=== PATIENT | male | born 1980 | race Asian ===

== ENCOUNTER 2017-04-24 12:42 | Emergency (ER) | payer OTHER ==
--- NOTE | 2017-04-24 12:48 | ED.REPORT ---
HPI-General Illness Date of Service Apr 24, 2017 ED Provider: Bart Bedoya DO The patient is a 36 year old male who was brought to the emergency department by his brother for bizarre behavior. The patient was scheduled to go to [facility] for detox treatment. His brother believes the patient used meth about 2 hours ago and may have used more than he normally does. The patient is not able to provide any history at this time. His brother believes he has history of schizophrenia. He was recently hospitalized at [facility] in [place] after he swallowed several razor blades. Nursing Notes Stated Complaint: HIGH ON METH Nursing Notes Reviewed: Yes Allergies: Coded Allergies: No Known Allergies (Unverified , 04/24/17) General Time Seen by MD: 12:46 Chief Complaint Altered mental status Hx Obtained From: Other family... Unable to Obtain Hx: Patient condition, Intoxicated Arrived By: Walk-in Sudden in Onset?: Yes Onset Occurred: 46 - 59 minutes ago Context of Onset: Amphetamine use Symptom Duration: Since onset Recent Healthcare: Recent hospitalization Past Medical History Past Medical History Notes: Not able to get a full past medical history due to the patient's current mental status Past Medical History Substance abuse Family History Noncontributory Smoking History Unknown if Ever Smoker Social History Drug Use: Meth Other Social History: Good social support Ambulatory Status Independent Review of Systems Unable to Obtain ROS Patient condition Physical Exam Vital Signs Vital Signs Date Time Temp Pulse Resp B/P Pulse Ox O2 Delivery O2 Flow Rate FiO2 04/24/17 13:15 124 21 141/99 95 Room Air 04/24/17 12:55 37.1 138 28 110/68 96 Room Air Initial VS: Reviewed, Vital signs abnormal Head / Eyes: Atraumatic, Normocephalic, PERRL ENT: Mucous membranes moist, Conjunctiva normal, No scleral icterus Neck: Supple, Non-tender, Full range of motion Respiratory: Breath sounds normal, Clear to auscultation, No respiratory distress Abdomen / GI: Soft Extremities: No swelling, No tenderness General/Constitutional: Awake, Cooperative Cardiovascular: Regular rhythm, Heart sounds NL, No murmurs, No rubs Heart Rate / Rhythm: Positive: Tachycardia Skin: Color NL Color / Condition: Positive: Diaphoresis present NEURO: Psychomotor agitation. PSY: Psychomotor agitation. Speaking gibberish. Unable to complete a full mental health evaluation due to status. Interpretation & Diagnostics Lab Results Interpretation Result Diagram: 04/24/17 1310 04/24/17 1310 Test 04/24/17 13:10 White Blood Count 21.8th/mm3 (3.8-10.1) Red Blood Count 5.99mil/mm3 (4.40-5.80) Hemoglobin 14.9g/dL (13.8-17.2) Hematocrit 43.6% (41.0-50.0) Mean Corpuscular Volume 72.8fL (81-100) Mean Corpuscular Hemoglobin 24.9pg (27.0-35.0) Mean Corpuscular Hemoglobin Concent 34.2% (32.0-37.0) Red Cell Distribution Width 14.7% (12.3-15.4) Platelet Count 375bil/L (150-400) Neutrophils (%) (Auto) 80.7% (40-74) Lymphocytes (%) (Auto) 13.2% (14-46) Monocytes (%) (Auto) 5.3% (4-12) Eosinophils (%) (Auto) 0.1% (0-5) Basophils (%) (Auto) 0.4% (0-3) Sodium Level 147mEq/L (134-144) Potassium Level 3.7mEq/L (3.5-5.2) Chloride Level 99mEq/L (97-108) Carbon Dioxide Level 28mmol/L (18-29) Blood Urea Nitrogen 24mg/dL (6-20) Creatinine 1.68mg/dL (0.76-1.27) Estimat Glomerular Filtration Rate 50mL/min (>59) Glucose Level 159mg/dL (60-99) Calcium Level 11.2mg/dL (8.5-10.1) Total Bilirubin 0.7mg/dL (0.0-1.2) Aspartate Amino Transf (AST/SGOT) 43U/L (0-50) Alanine Aminotransferase (ALT/SGPT) 36U/L (0-44) Alkaline Phosphatase 85U/L (25-150) Total Creatine Kinase 586U/L (21-232) Total Protein 8.9g/dL (6.4-8.4) Albumin 5.0g/dL (3.4-5.0) Thyroid Stimulating Hormone (TSH) 1.490uIU/mL (0.450-4.500) Hold [place] Top Tube Received (Received) Alcohols < 10mg/dL (0-10) ECG Interpretation ECG Interpretation: Sinus tachycardia with a rate of 118 Probable LVH No acute ischemic changes Time: 13:32 Interpreted by: ED physician X-Ray Abdominal Interpretation IMPRESSION: No opaque foreign bodies identified. Distended stomach. Dictated by: Lilian Paige M.D. 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 Required multiple doses of parenteral lorazepam. Needs continued monitoring for metabolism of probable methamphetamine. Patient care transferred to Dr. Dela Cruz Source of Hx: Family Consultation : Consulted With: herbarium worker Call Returned at: 14:00 Note: ED social media manager is aware of the patient. Counseled Regarding: Diagnosis, Lab results Discharge & Departure Shift Change Sign-Out Response to Therapy: Improved Primary Impression: Psychomotor agitation Additional Impression: Substance abuse Discharge Condition All VS Reviewed: Yes Condition: Stable Care Transferred to: Dr. Dela Cruz Care Transferred at: 15:01 Crit Care Except Billable Proc Time Spent: 30-74 minutes Services Performed: Patient management by me, Time spent at bedside, Reviewing test results Critical Care Notes: See Armando ALVARADO Attestation Portions of this note were transcribed by Jaclyn Peck. I, Dr. Bedoya personally performed the history, physical exam and medical decision-making; I reviewed and confirmed the accuracy of the information in the transcribed note. Signed by: Armando Robertson, 04/24/2017 at 1510. Bart Bedoya DO Apr 24, 2017 12:47 Jaclyn Peck Apr 24, 2017 12:51
[2017-04-24] MEDS ORDERED: 0.9% Sodium Chloride 1,000 ML IV SCH (12:50)
[2017-04-24 12:55] VITALS: BP 110/68; PULSE 138; RESP 28; O2SAT 96
[2017-04-24 13:15] VITALS: BP 141/99; PULSE 124; RESP 21; O2SAT 95
[2017-04-24 13:36] LABS: EOSINOPHILS % (AUTO) 0.1 % (0-5)
[2017-04-24 13:45] LABS: BASOPHILS % (AUTO) 0.4 % (0-3); MONOCYTES % (AUTO) 5.3 % (4-12); Mean Corpuscular Hemoglobin 24.9 pg (27.0-35.0); Mean Corpuscular Volume 72.8 fL (81-100); NEUTROPHILS % (AUTO) 80.7 % (40-74); Platelet Count 375 bil/L (150-400)
[2017-04-24 14:15] VITALS: BP 129/62; PULSE 118; RESP 29; O2SAT 97
[2017-04-24] MEDS: 0.9% Sodium Chloride 1,000 ML IV SCH ×2 (14:19→16:50)
--- NOTE | 2017-04-24 14:29 | DRSVH ---
PROCEDURE: X-RAY ABDOMEN, ONE VIEW ([id number]) INDICATIONS: eval for FB TECHNIQUE: One view of the abdomen acquired. COMPARISON: None. FINDINGS: Surgical changes and devices: There is surgical suture in the right mid abdomen. Bowel: Distended stomach. Moderate amount of stool in colon. Bowel gas pattern is normal. No opaque foreign bodies. Soft tissues: No suspicious abdominal calcifications. Visualized solid organ contours appear normal in size. Bones: No suspicious bony lesions. IMPRESSION: No opaque foreign bodies identified. Distended stomach. Dictated by: Lilian Paige M.D. on 04/24/2017 at 14:26 Approved by: Lilian Paige M.D. on 04/24/2017 at 14:27
[2017-04-24 15:15] VITALS: BP 115/56; PULSE 101; RESP 27; O2SAT 96
[2017-04-24] MEDS ORDERED: 0.9% Sodium Chloride 1,000 ML IV ONE (16:00)
[2017-04-24 16:40] VITALS: BP 125/71; PULSE 99; RESP 24; O2SAT 98
[2017-04-24 19:22] VITALS: BP 130/83; PULSE 101; RESP 16; O2SAT 100
[2017-04-25] MEDS ORDERED: Haloperidol 5 mg/mL Inj ONE (02:43)
[2017-04-25 05:47] VITALS: BP 126/68; PULSE 81; RESP 17; O2SAT 99
[2017-04-25 10:03] VITALS: BP 104/58; PULSE 91; RESP 14; O2SAT 97
[2017-04-25 11:27] VITALS: PULSE 78; RESP 17; O2SAT 98
== END 2017-04-25 11:27 | disposition home or self-care (01) ==
LOC: SED 12:42
DX: R45.1 Restlessness and agitation (principal); F19.10 Other psychoactive substance abuse, uncomplicated; F15.10 Other stimulant abuse, uncomplicated
CPT/HCPCS: 36415; 74000; 80053; 81002; 82550; 84443; 85025; 93005; 96361; 96372; 96374; 96375; 96376; 99291; G0480; J1200; J1630; J2060; J7030